=== PATIENT | male | born 1970 | race African-American/Black ===

== ENCOUNTER 2017-10-25 06:32 | Inpatient (IN) ==
[2017-10-25] MEDS ORDERED: HYDROmorphone 2 MG/1 ML VIAL ONE (07:09)
[2017-10-25] MEDS ORDERED: ONDANSETRON 4 MG/2 ML VIAL ONE (07:09)
[2017-10-25] MEDS ORDERED: ONDANSETRON 4 MG/2 ML VIAL IV STA (07:39)
[2017-10-25] MEDS ORDERED: HYDROmorphone 2 MG/1 ML VIAL IV STA (07:39)
[2017-10-25] MEDS ORDERED: SODIUM CHLOR 0.9% KCL 40 MEQ 40 MEQ/1,000 ML BAG IV ONE (07:44)
[2017-10-25 07:46] LABS: Basophils % 0.3 % (0.0-0.8); Eosinophils % 0.1 % (0.00-10.9); Hematocrit 41.2 VOL% (42.0-52.0); Hemoglobin 14.1 GM/DL (14.0-18.0); Immature Granulocytes % 0.4 %; Immature Granulocytes Absolute 0.04 #; Lymphocytes # 0.6 10*3/uL (1.4-4.0); Lymphocytes % 5.1 % (21.2-54.2); Mean Corpuscular HGB Conc 34.2 GM/DL (32-36); Mean Corpuscular Hemoglobin 31 PG (27-34); Mean Corpuscular Volume 91.2 FL (87-102); Mean Platelet Volume 9.4 FL (9.6-12.0); Monocytes # 0.8 10*3/uL (0.11-0.8); Monocytes % 7.4 % (1.7-12.7); Neutrophils # 9.8 10*3/uL (1.4-7.4); Neutrophils % 86.7 % (38.7-73.9); Platelet Count 372 T/CUMM (130-400); Red Blood Count 4.52 MC/CUMM (3.8-5.5); Red Cell Distribution Width 11.7 % (9.3-17.3); White Blood Count 11.3 T/CUMM (4-12)
[2017-10-25] MEDS: SODIUM CHLOR 0.9% KCL 40 MEQ 40 MEQ/1,000 ML BAG IV SCH ×3 (07:48→23:23)
[2017-10-25 08:20] LABS: Calcium 8.6 MG/DL (8.5-10.1); Osmolality,Calculated 280.4 MOS/KG (273-304); Potassium 3.4 MMOL/L (3.5-5.1)
[2017-10-25] MEDS ORDERED: ACETAMINOPHEN 325 MG TABLET PO PRN (12:43)
[2017-10-25] MEDS: HYDROmorphone 2 MG/1 ML VIAL IV PRN ×3 (13:38→23:29)
[2017-10-25] MEDS: PANTOPRAZOLE 40 MG TABLET PO SCH (13:52)
[2017-10-25] MEDS: PHENYTOIN ER 100 MG CAPSULE PO SCH ×2 (13:52→22:21)
[2017-10-25] MEDS: ONDANSETRON 4 MG/2 ML VIAL IV PRN (19:20)
[2017-10-25] MEDS: QUEtiapine 100 MG TABLET PO SCH (22:21)
[2017-10-26] MEDS: SODIUM CHLOR 0.9% KCL 40 MEQ 40 MEQ/1,000 ML BAG IV SCH ×2 (04:03→06:10)
[2017-10-26] MEDS: HYDROmorphone 2 MG/1 ML VIAL IV PRN ×2 (06:03→15:19)
[2017-10-26] MEDS: ONDANSETRON 4 MG/2 ML VIAL IV PRN (06:07)
[2017-10-26 06:26] LABS: Basophils % 0.5 % (0.0-0.8); Eosinophils % 1.7 % (0.00-10.9); Hematocrit 40.3 VOL% (42.0-52.0); Hemoglobin 12.9 GM/DL (14.0-18.0); Immature Granulocytes % 0.5 %; Lymphocytes % 15.2 % (21.2-54.2); Mean Corpuscular Hemoglobin 31 PG (27-34); Mean Platelet Volume 9.4 FL (9.6-12.0); Monocytes % 9.2 % (1.7-12.7); Neutrophils # 4.7 10*3/uL (1.4-7.4); Neutrophils % 72.9 % (38.7-73.9); Platelet Count 316 T/CUMM (130-400); Red Cell Distribution Width 11.9 % (9.3-17.3); White Blood Count 6.4 T/CUMM (4-12)
[2017-10-26 06:27] LABS: Eosinophils # 0.1 10*3/uL (0.0-0.87); Immature Granulocytes Absolute 0.03 #; Monocytes # 0.6 10*3/uL (0.11-0.8)
[2017-10-26 07:06] LABS: Bilirubin,Total 0.8 MG/DL (0.2-1.0); Calcium 8.5 MG/DL (8.5-10.1); Osmolality,Calculated 277.4 MOS/KG (273-304); Potassium 4.6 MMOL/L (3.5-5.1); Total Protein 6.2 G/DL (6.4-8.3)
[2017-10-26] MEDS: PANTOPRAZOLE 40 MG TABLET PO SCH (09:28)
[2017-10-26] MEDS: PHENYTOIN ER 100 MG CAPSULE PO SCH ×2 (09:29→20:23)
[2017-10-26] MEDS: DEXTROSE 5% NACL 0.45% 1,000 ML IV SCH ×2 (09:30→21:34)
[2017-10-26] MEDS: QUEtiapine 100 MG TABLET PO SCH (20:24)
[2017-10-27 03:53] LABS: Apearance,Urine CLEAR (Clear); Bilirubin,Urine Negative (Negative); Blood, Urine Negative (Negative); Glucose,Urine (UA) Negative (Negative); Ketones,Urine Negative (Negative); Mucus,Urine Occasional /LPF (Occasional); Nitrite,Urine Negative (Negative); Protein,Urine Negative; RBC,Urine 1 /HPF (0-4); Urine Color Yellow (Yellow); Urine Specific Gravity 1.013 (1.001-1.035); Urine Urobilinogen < 2.0 EU/DL (0.2-1.0); WBC,Urine 1 /HPF (0-6)
[2017-10-27] MEDS: PANTOPRAZOLE 40 MG TABLET PO SCH (09:03)
[2017-10-27] MEDS: PHENYTOIN ER 100 MG CAPSULE PO SCH ×2 (09:03→20:36)
[2017-10-27] MEDS: DEXTROSE 5% NACL 0.45% 1,000 ML IV SCH (11:53)
[2017-10-27] MEDS: QUEtiapine 100 MG TABLET PO SCH (20:36)
[2017-10-28] MEDS: DEXTROSE 5% NACL 0.45% 1,000 ML IV SCH (01:32)
[2017-10-28] MEDS: PANTOPRAZOLE 40 MG TABLET PO SCH (08:59)
[2017-10-28] MEDS: PHENYTOIN ER 100 MG CAPSULE PO SCH (08:59)
[2017-10-28 11:57] VITALS: BP 113/70
== END 2017-10-28 12:40 | disposition home or self-care (01) | DRG 389 ==
LOC: N.ED 06:32 → N.EDINP 07:12 → N.5E 12:42
PROVIDERS: ADMIT Surgery; ATTEND Surgery

== ENCOUNTER 2019-06-22 23:49 | Observation (INO) ==
[2019-06-23 00:51] LABS: Alanine Aminotransferase 27 U/L (16-61); Albumin 3.8 G/DL (3.4-5.0); Alkaline Phosphatase 89 U/L (45-117); Aspartate Amino Transferase 32 U/L (0-37); Bilirubin,Total < 0.39 MG/DL (0.2-1.0); Blood Urea Nitrogen 10 MG/DL (7-18); Glucose 69 MG/DL (74-106); Osmolality,Calculated 279.1 MOS/KG (273-304); Total Protein 7.3 G/DL (6.4-8.3)
[2019-06-23 00:56] LABS: Basophils # 0.1 10*3/uL (0.0-0.2); Basophils % 0.9 % (0.0-0.8); Eosinophils # 0.3 10*3/uL (0.0-0.87); Eosinophils % 5.7 % (0.00-10.9); Hematocrit 39.2 VOL% (42.0-52.0); Hemoglobin 12.3 GM/DL (14.0-18.0); Immature Granulocytes % 0.4 %; Immature Granulocytes Absolute 0.02 #; Lymphocytes # 1.8 10*3/uL (1.4-4.0); Lymphocytes % 33.1 % (21.2-54.2); Mean Corpuscular HGB Conc 31.4 GM/DL (32-36); Mean Corpuscular Volume 95.6 FL (87-102); Mean Platelet Volume 9.1 FL (9.6-12.0); Neutrophils % 52.9 % (38.7-73.9); Platelet Count 256 T/CUMM (130-400); White Blood Count 5.4 T/CUMM (4-12)
[2019-06-23 00:56] LABS: Salicylate < 2.8 MG/DL (2.8-20)
[2019-06-23 01:00] LABS: Acetaminophen < 2.0 UG/ML (10-30)
[2019-06-23 01:54] LABS: Barbiturates Screen,Urine Negative (Negative); Benzodiazepines Screen,Urine Negative (Negative); Cannabinoid Screen,Urine Positive (Negative); Opiate Screen,Urine Negative (Negative); Phencyclidine Screen,Urine Negative (Negative)
[2019-06-23] MEDS ORDERED: THIAMINE INJ 100 MG, FOLIC ACID INJ 1 MG, MULTIVITAMIN INJ 10 ML in SODIUM CHLORIDE 0.9... IV ONE (06:36)
[2019-06-23] MEDS ORDERED: ONDANSETRON 4 MG/2 ML VIAL IV PRN (06:36)
[2019-06-23] MEDS ORDERED: ACETAMINOPHEN 325 MG TABLET PO PRN (06:36)
[2019-06-23] MEDS ORDERED: SODIUM CHLORIDE 0.9% 1,000 ML IV SCH (06:36)
[2019-06-23] MEDS ORDERED: LORazepam 2 MG/1 ML VIAL IV PRN (06:36)
[2019-06-23] MEDS ORDERED: LORazepam 1 MG TABLET PO SCH (09:00)
[2019-06-23] MEDS: ENOXAPARIN 40 MG/0.4 ML SYRINGE SUBCUT SCH ×2 (09:12→09:18)
[2019-06-23] MEDS ORDERED: PHENYTOIN ER 100 MG CAPSULE PO SCH (10:00)
[2019-06-23 19:19] VITALS: BP 114/75
[2019-06-23] MEDS ORDERED: QUEtiapine 100 MG TABLET PO SCH (21:00)
== END 2019-06-23 17:53 ==
LOC: EDUNIT# → N.EDINP 23:49 → N.ED 23:49 → N.5E 06-23 05:24
PROVIDERS: ADMIT Hospitalist; ATTEND Hospitalist

== ENCOUNTER 2021-06-24 23:07 | Inpatient (IN) ==
[2021-06-24] MEDS ORDERED: LEVOFLOXACIN INJ 750 MG/150 ML PREMIX IV SCH (23:45)
[2021-06-24] MEDS: metroNIDAZOLE INJ 500 MG/100 ML PREMIX IV SCH (23:58)
[2021-06-25] MEDS: MORPHINE 2 MG/1 ML SYRINGE IV PRN ×3 (01:33→20:18)
[2021-06-25] MEDS: ONDANSETRON 4 MG/2 ML VIAL IV PRN ×2 (01:33→20:18)
[2021-06-25] MEDS: DEXTROSE 5% NACL 0.45% 1,000 ML IV SCH ×4 (01:50→23:57)
[2021-06-25 04:24] LABS: Basophils % 0.3 % (0.0-0.8); Eosinophils # 0.1 10*3/uL (0.0-0.87); Hematocrit 42.5 VOL% (42.0-52.0); Hemoglobin 13.5 GM/DL (14.0-18.0); Immature Granulocytes % 0.3 %; Immature Granulocytes Absolute 0.02 #; Lymphocytes # 1.2 10*3/uL (1.4-4.0); Lymphocytes % 19.6 % (21.2-54.2); Mean Corpuscular HGB Conc 31.8 GM/DL (32-36); Mean Corpuscular Volume 95.7 FL (87-102); Mean Platelet Volume 9.5 FL (9.6-12.0); Monocytes % 9.2 % (1.7-12.7); Neutrophils % 69.6 % (38.7-73.9); Platelet Count 345 T/CUMM (130-400); Red Blood Count 4.44 MC/CUMM (3.8-5.5); Red Cell Distribution Width 11.5 % (9.3-17.3); White Blood Count 6.1 T/CUMM (4-12)
[2021-06-25 04:51] LABS: Albumin 2.9 G/DL (3.4-5.0); Bilirubin,Total 0.7 MG/DL (0.20-1.00); Calcium 8.3 MG/DL (8.5-10.1); Osmolality,Calculated 277.5 MOS/KG (273-304); Potassium 3.7 MMOL/L (3.5-5.1); Total Protein 6.1 G/DL (6.4-8.2)
[2021-06-25] MEDS: PANTOPRAZOLE 40 MG VIAL IV SCH (08:45)
[2021-06-25] MEDS: metroNIDAZOLE INJ 500 MG/100 ML PREMIX IV SCH ×3 (08:46→23:49)
[2021-06-25] MEDS: PHENYTOIN 100 MG/2 ML VIAL IV SCH ×2 (08:46→22:10)
[2021-06-25] MEDS ORDERED: ACETAMINOPHEN 325 MG TABLET PO PRN (13:21)
[2021-06-25] MEDS: CIPROFLOXACIN INJ 400 MG/200 ML PREMIX IV SCH (14:45)
[2021-06-26] MEDS: CIPROFLOXACIN INJ 400 MG/200 ML PREMIX IV SCH ×2 (01:33→12:42)
[2021-06-26 05:28] LABS: Basophils % 0.3 % (0.0-0.8); Eosinophils # 0.1 10*3/uL (0.0-0.87); Eosinophils % 1.5 % (0.00-10.9); Hematocrit 45.8 VOL% (42.0-52.0); Hemoglobin 14.6 GM/DL (14.0-18.0); Immature Granulocytes % 0.2 %; Immature Granulocytes Absolute 0.01 #; Lymphocytes # 1.1 10*3/uL (1.4-4.0); Lymphocytes % 18.2 % (21.2-54.2); Mean Corpuscular HGB Conc 31.9 GM/DL (32-36); Mean Corpuscular Volume 95.2 FL (87-102); Mean Platelet Volume 9.7 FL (9.6-12.0); Monocytes % 10.4 % (1.7-12.7); Neutrophils % 69.4 % (38.7-73.9); Platelet Count 375 T/CUMM (130-400); Red Blood Count 4.81 MC/CUMM (3.8-5.5); Red Cell Distribution Width 11.5 % (9.3-17.3); White Blood Count 6.2 T/CUMM (4-12)
[2021-06-26 05:55] LABS: Albumin 2.9 G/DL (3.4-5.0); Bilirubin,Total 0.7 MG/DL (0.20-1.00); Calcium 8.3 MG/DL (8.5-10.1); Osmolality,Calculated 268.1 MOS/KG (273-304); Potassium 3.6 MMOL/L (3.5-5.1); Total Protein 6.2 G/DL (6.4-8.2)
[2021-06-26] MEDS: PHENYTOIN 100 MG/2 ML VIAL IV SCH ×2 (08:32→20:38)
[2021-06-26] MEDS: metroNIDAZOLE INJ 500 MG/100 ML PREMIX IV SCH ×3 (08:33→23:58)
[2021-06-26] MEDS: PANTOPRAZOLE 40 MG VIAL IV SCH (08:33)
[2021-06-26] MEDS: DEXTROSE 5% NACL 0.45% 1,000 ML IV SCH ×2 (08:33→17:10)
[2021-06-26] MEDS: MORPHINE 2 MG/1 ML SYRINGE IV PRN (18:35)
[2021-06-27] MEDS: DEXTROSE 5% NACL 0.45% 1,000 ML IV SCH ×3 (01:04→20:58)
[2021-06-27] MEDS: CIPROFLOXACIN INJ 400 MG/200 ML PREMIX IV SCH ×2 (02:04→12:47)
[2021-06-27] MEDS: PANTOPRAZOLE 40 MG VIAL IV SCH (08:06)
[2021-06-27] MEDS: PHENYTOIN 100 MG/2 ML VIAL IV SCH ×2 (08:07→21:28)
[2021-06-27] MEDS: LACTATED RINGERS 500 ML IV SCH (08:30)
[2021-06-27] MEDS ORDERED: propofoL 200 MG/20 ML VIAL IV ONE (08:49)
[2021-06-27] MEDS ORDERED: LIDOCAINE 2% 5 ML VIAL ONE (08:49)
[2021-06-27] MEDS: metroNIDAZOLE INJ 500 MG/100 ML PREMIX IV SCH ×3 (10:11→22:47)
[2021-06-27] MEDS ORDERED: CYCLOBENZAPRINE 10 MG TABLET PO PRN (11:59)
[2021-06-27] MEDS ORDERED: traZODone 50 MG TABLET PO PRN (21:00)
[2021-06-27] MEDS: MORPHINE 2 MG/1 ML SYRINGE IV PRN (22:45)
[2021-06-28] MEDS: CIPROFLOXACIN INJ 400 MG/200 ML PREMIX IV SCH ×2 (01:36→14:24)
[2021-06-28 05:24] LABS: Albumin 2.8 G/DL (3.4-5.0); Bilirubin,Total 0.8 MG/DL (0.20-1.00); Calcium 8.1 MG/DL (8.5-10.1); Osmolality,Calculated 274.5 MOS/KG (273-304); Potassium 3.7 MMOL/L (3.5-5.1); Total Protein 5.8 G/DL (6.4-8.2)
[2021-06-28 05:41] LABS: Basophils % 0.3 % (0.0-0.8); Eosinophils # 0.2 10*3/uL (0.0-0.87); Eosinophils % 2.4 % (0.00-10.9); Hematocrit 38.7 VOL% (42.0-52.0); Immature Granulocytes % 0.3 %; Immature Granulocytes Absolute 0.02 #; Lymphocytes # 1.3 10*3/uL (1.4-4.0); Lymphocytes % 20.8 % (21.2-54.2); Mean Corpuscular HGB Conc 32.6 GM/DL (32-36); Mean Corpuscular Volume 95.1 FL (87-102); Mean Platelet Volume 10.2 FL (9.6-12.0); Monocytes % 12.9 % (1.7-12.7); Neutrophils % 63.3 % (38.7-73.9); Red Blood Count 4.07 MC/CUMM (3.8-5.5); Red Cell Distribution Width 11.4 % (9.3-17.3); White Blood Count 6.2 T/CUMM (4-12)
[2021-06-28 05:43] LABS: Hemoglobin 12.6 GM/DL (14.0-18.0); Platelet Count 267 T/CUMM (130-400)
[2021-06-28] MEDS: DEXTROSE 5% NACL 0.45% 1,000 ML IV SCH ×3 (05:43→22:02)
[2021-06-28] MEDS ORDERED: CLINDAMYCIN INJ 900 MG/50 ML PREMIX IV ONE (06:00)
[2021-06-28] MEDS ORDERED: ONDANSETRON 4 MG/2 ML VIAL ONE (07:02)
[2021-06-28] MEDS ORDERED: MIDAZOLAM 2 MG/2 ML VIAL ONE (07:02)
[2021-06-28] MEDS ORDERED: SEVOFLURANE 1 UNIT/15 MINUTE INH ONE ×8 (07:02→10:32)
[2021-06-28] MEDS ORDERED: LIDOCAINE 2% 5 ML VIAL ONE (07:02)
[2021-06-28] MEDS ORDERED: fentaNYL 100 MCG/2 ML VIAL ONE ×2 (07:02→08:48)
[2021-06-28] MEDS ORDERED: propofoL 200 MG/20 ML VIAL IV ONE (07:02)
[2021-06-28] MEDS ORDERED: ROCURONIUM 50 MG/5 ML VIAL IV ONE ×2 (07:02→08:43)
[2021-06-28] MEDS ORDERED: LACTATED RINGERS 1,000 ML IV SCH (08:00)
[2021-06-28] MEDS ORDERED: PHENYLEPHRINE 1 MG/10 ML SYRINGE IV ONE (08:26)
[2021-06-28] MEDS ORDERED: ePHEDrine 50 MG/ML VIAL ONE (08:30)
[2021-06-28] MEDS ORDERED: ARIPIPRAZOLE 30 MG PO SCH (09:00)
[2021-06-28] MEDS ORDERED: ACETAMINOPHEN INJ 1,000 MG/100 ML VIAL IV ONE (09:03)
[2021-06-28] MEDS ORDERED: LACTATED RINGERS 1,000 ML IV ONE (09:05)
[2021-06-28] MEDS ORDERED: NEOSTIGMINE 10 MG/10 ML VIAL ONE (10:18)
[2021-06-28] MEDS ORDERED: GLYCOPYRROLATE 0.4 MG/2 ML VIAL ONE (10:18)
[2021-06-28] MEDS ORDERED: HYDROmorphone 2 MG/1 ML VIAL ONE (10:38)
[2021-06-28] MEDS ORDERED: NALOXONE 0.4 MG/ML VIAL IV PRN (10:43)
[2021-06-28] MEDS ORDERED: ONDANSETRON 4 MG/2 ML VIAL IV PRN (10:49)
[2021-06-28] MEDS ORDERED: diphenhydrAMINE 50 MG/1 ML VIAL IV PRN (10:49)
[2021-06-28] MEDS ORDERED: HYDROmorphone 2 MG/1 ML VIAL IV PRN (10:49)
[2021-06-28] MEDS ORDERED: MEPERIDINE 25 MG/1 ML VIAL IV PRN (10:49)
[2021-06-28] MEDS ORDERED: PROMETHAZINE INJ 25 MG in SODIUM CHLORIDE 0.9% 50 ML IV PRN (10:49)
[2021-06-28] MEDS: LACTATED RINGERS 500 ML IV SCH (11:19)
[2021-06-28] MEDS: PHENYTOIN 100 MG/2 ML VIAL IV SCH ×2 (11:20→22:04)
[2021-06-28] MEDS: metroNIDAZOLE INJ 500 MG/100 ML PREMIX IV SCH ×3 (11:20→23:57)
[2021-06-28] MEDS: PANTOPRAZOLE 40 MG VIAL IV SCH (11:20)
[2021-06-28] MEDS: HYDROmorphone PCA 30 MG/30 ML SYRINGE IV SCH (11:32)
[2021-06-29] MEDS: CIPROFLOXACIN INJ 400 MG/200 ML PREMIX IV SCH ×2 (01:39→15:23)
[2021-06-29 05:14] LABS: Basophils % 0.1 % (0.0-0.8); Eosinophils % 0.4 % (0.00-10.9); Hematocrit 38.8 VOL% (42.0-52.0); Hemoglobin 12.4 GM/DL (14.0-18.0); Immature Granulocytes % 0.4 %; Immature Granulocytes Absolute 0.04 #; Lymphocytes # 0.6 10*3/uL (1.4-4.0); Lymphocytes % 6.4 % (21.2-54.2); Mean Corpuscular Volume 95.1 FL (87-102); Mean Platelet Volume 10.3 FL (9.6-12.0); Monocytes % 8.4 % (1.7-12.7); Neutrophils % 84.3 % (38.7-73.9); Platelet Count 263 T/CUMM (130-400); Red Blood Count 4.08 MC/CUMM (3.8-5.5); Red Cell Distribution Width 11.4 % (9.3-17.3); White Blood Count 9.1 T/CUMM (4-12)
[2021-06-29 05:44] LABS: Calcium 8.1 MG/DL (8.5-10.1); Potassium 3.6 MMOL/L (3.5-5.1)
[2021-06-29 05:48] LABS: Albumin 2.8 G/DL (3.4-5.0); Bilirubin,Direct 0.23 MG/DL (0.0-0.20); Bilirubin,Indirect 0.8 MG/DL (0.0-1.0); Total Protein 6.1 G/DL (6.4-8.2)
[2021-06-29] MEDS: DEXTROSE 5% NACL 0.45% 1,000 ML IV SCH ×3 (07:48→17:51)
[2021-06-29] MEDS ORDERED: MAGNESIUM SULF INJ 3 GM in SODIUM CHLORIDE 0.9% 100 ML IV ONE (09:00)
[2021-06-29] MEDS: PHENYTOIN 100 MG/2 ML VIAL IV SCH ×2 (09:22→20:41)
[2021-06-29] MEDS: metroNIDAZOLE INJ 500 MG/100 ML PREMIX IV SCH ×2 (09:23→17:51)
[2021-06-29] MEDS: PANTOPRAZOLE 40 MG VIAL IV SCH (09:25)
[2021-06-29] MEDS: POTASSIUM CHLORIDE RIDER 10 MEQ/100 ML PREMIX IV SCH ×3 (13:20→20:46)
[2021-06-29] MEDS: LACTATED RINGERS 500 ML IV SCH (15:18)
[2021-06-29] MEDS: HYDROmorphone PCA 30 MG/30 ML SYRINGE IV SCH (15:18)
[2021-06-30] MEDS: DEXTROSE 5% NACL 0.45% 1,000 ML IV SCH ×2 (02:13→09:14)
[2021-06-30] MEDS: POTASSIUM CHLORIDE RIDER 10 MEQ/100 ML PREMIX IV SCH (03:24)
[2021-06-30] MEDS ORDERED: CIPROFLOXACIN 500 MG TABLET PO ONE (04:06)
[2021-06-30] MEDS ORDERED: metroNIDAZOLE 500 MG TABLET PO ONE (04:06)
[2021-06-30] MEDS ORDERED: POTASSIUM CHLORIDE 10 MEQ TABLET PO ONE (04:08)
[2021-06-30] MEDS: metroNIDAZOLE INJ 500 MG/100 ML PREMIX IV SCH ×2 (04:15→09:15)
[2021-06-30] MEDS: CIPROFLOXACIN INJ 400 MG/200 ML PREMIX IV SCH (04:16)
[2021-06-30 05:12] LABS: Basophils % 0.3 % (0.0-0.8); Eosinophils # 0.1 10*3/uL (0.0-0.87); Eosinophils % 1.2 % (0.00-10.9); Hematocrit 39.7 VOL% (42.0-52.0); Immature Granulocytes % 0.4 %; Immature Granulocytes Absolute 0.04 #; Lymphocytes % 10.4 % (21.2-54.2); Mean Corpuscular HGB Conc 32.7 GM/DL (32-36); Mean Corpuscular Volume 95.4 FL (87-102); Mean Platelet Volume 10.2 FL (9.6-12.0); Monocytes % 11.1 % (1.7-12.7); Neutrophils % 76.6 % (38.7-73.9); Platelet Count 294 T/CUMM (130-400); Red Blood Count 4.16 MC/CUMM (3.8-5.5); Red Cell Distribution Width 11.4 % (9.3-17.3); White Blood Count 9.2 T/CUMM (4-12)
[2021-06-30 05:48] LABS: Albumin 2.7 G/DL (3.4-5.0); Bilirubin,Total 0.6 MG/DL (0.20-1.00); Calcium 8.6 MG/DL (8.5-10.1); Osmolality,Calculated 272.7 MOS/KG (273-304); Total Protein 6.4 G/DL (6.4-8.2)
[2021-06-30] MEDS: LACTATED RINGERS 500 ML IV SCH (09:14)
[2021-06-30] MEDS: PHENYTOIN 100 MG/2 ML VIAL IV SCH (09:15)
[2021-06-30] MEDS: PANTOPRAZOLE 40 MG VIAL IV SCH (09:16)
[2021-06-30 11:46] VITALS: BP 120/73
[2021-06-30] MEDS ORDERED: PHENYTOIN ER 100 MG CAPSULE PO SCH (21:00)
== END 2021-06-30 15:49 | disposition home or self-care (01) | DRG 416 ==
LOC: EDUNIT# → EDBD → N.ED 23:07 → N.EDINP 23:56 → N.3E 06-25 01:15
PROVIDERS: ADMIT Student in an Organized Health Care Education/Training Program; ATTEND Student in an Organized Health Care Education/Training Program
PROC: LAPCHOL (2021-06-28 07:46)

== ENCOUNTER 2021-10-27 06:53 | Observation (INO) ==
[2021-10-27] MEDS: SODIUM CHLOR 0.9% KCL 40 MEQ 40 MEQ/1,000 ML BAG IV SCH ×2 (08:30→18:52)
[2021-10-27] MEDS ORDERED: HYDROmorphone 2 MG/1 ML VIAL IV STA (08:37)
[2021-10-27] MEDS ORDERED: ONDANSETRON 4 MG/2 ML VIAL IV STA (08:37)
[2021-10-27 08:48] LABS: Basophils % 0.2 % (0.0-0.8); Eosinophils % 0.2 % (0.00-10.9); Hematocrit 42.5 VOL% (42.0-52.0); Hemoglobin 13.8 GM/DL (14.0-18.0); Immature Granulocytes % 0.3 %; Immature Granulocytes Absolute 0.03 #; Lymphocytes # 0.5 10*3/uL (1.4-4.0); Lymphocytes % 6.2 % (21.2-54.2); Mean Corpuscular HGB Conc 32.5 GM/DL (32-36); Mean Platelet Volume 9.6 FL (9.6-12.0); Monocytes % 5.5 % (1.7-12.7); Neutrophils % 87.6 % (38.7-73.9); Platelet Count 373 T/CUMM (130-400); Red Blood Count 4.62 MC/CUMM (3.8-5.5); Red Cell Distribution Width 11.9 % (9.3-17.3); White Blood Count 8.6 T/CUMM (4-12)
[2021-10-27 09:04] LABS: Calcium 8.9 MG/DL (8.5-10.1); Osmolality,Calculated 280.3 MOS/KG (273-304); Potassium 3.8 MMOL/L (3.5-5.1)
[2021-10-27] MEDS ORDERED: HYDROmorphone 2 MG/1 ML VIAL IV PRN (11:02)
[2021-10-27] MEDS ORDERED: ONDANSETRON 4 MG/2 ML VIAL IV PRN (11:02)
[2021-10-27] MEDS ORDERED: ALBUTEROL/IPRATROPIUM 3 ML NEB RESP TX PRN (11:02)
[2021-10-27] MEDS ORDERED: ACETAMINOPHEN 325 MG TABLET PO PRN (11:02)
[2021-10-27] MEDS ORDERED: CYCLOBENZAPRINE 10 MG TABLET PO PRN (11:05)
[2021-10-27] MEDS ORDERED: KETOROLAC 30 MG/1 ML VIAL IV PRN (11:25)
[2021-10-27] MEDS: LACTATED RINGERS 1,000 ML IV SCH (13:30)
[2021-10-27] MEDS: PHENYTOIN ER 100 MG CAPSULE PO SCH (20:57)
[2021-10-27] MEDS: ARIPiprazole 5 MG TABLET PO SCH (20:58)
[2021-10-27] MEDS ORDERED: traZODone 50 MG TABLET PO SCH (21:00)
[2021-10-28] MEDS: LACTATED RINGERS 1,000 ML IV SCH ×2 (01:47→10:12)
[2021-10-28 04:10] LABS: Basophils % 0.4 % (0.0-0.8); Eosinophils # 0.2 10*3/uL (0.0-0.87); Eosinophils % 3.7 % (0.00-10.9); Hematocrit 38.2 VOL% (42.0-52.0); Hemoglobin 12.5 GM/DL (14.0-18.0); Immature Granulocytes % 0.2 %; Immature Granulocytes Absolute 0.01 #; Lymphocytes # 1.5 10*3/uL (1.4-4.0); Lymphocytes % 27.5 % (21.2-54.2); Mean Corpuscular HGB Conc 32.7 GM/DL (32-36); Mean Corpuscular Volume 93.4 FL (87-102); Mean Platelet Volume 9.3 FL (9.6-12.0); Monocytes % 9.6 % (1.7-12.7); Neutrophils % 58.6 % (38.7-73.9); Platelet Count 302 T/CUMM (130-400); Red Blood Count 4.09 MC/CUMM (3.8-5.5); Red Cell Distribution Width 11.8 % (9.3-17.3); White Blood Count 5.4 T/CUMM (4-12)
[2021-10-28 04:30] LABS: Calcium 8.1 MG/DL (8.5-10.1); Osmolality,Calculated 268.1 MOS/KG (273-304); Potassium 4.2 MMOL/L (3.5-5.1)
[2021-10-28] MEDS ORDERED: ENOXAPARIN 40 MG/0.4 ML SYRINGE SUBCUT SCH (05:30)
[2021-10-28] MEDS: PHENYTOIN ER 100 MG CAPSULE PO SCH (08:38)
[2021-10-28] MEDS: ARIPiprazole 5 MG TABLET PO SCH (08:38)
[2021-10-28] MEDS ORDERED: PANTOPRAZOLE 40 MG VIAL IV SCH (09:00)
[2021-10-28 11:09] VITALS: BP 108/66
== END 2021-10-28 12:25 | disposition home or self-care (01) ==
LOC: EDBD → EDUNIT# → N.ED 06:53 → N.EDINP 06:53 → N.3E 13:43
PROVIDERS: ADMIT Surgery; ATTEND Surgery